=== PATIENT | male | born 1980 | race Caucasian/White ===

== ENCOUNTER 2018-11-20 00:37 | Emergency (ER) | payer SELFPAY ==
[~2018-11-20] VITALS: Ht 175.3 cm; Wt 79.4 kg
--- NOTE | 2018-11-20 00:45 | NUR ---
PATIENT NOT IN WAITING ROOM.
[2018-11-20 01:15] VITALS: BP 134/83
[2018-11-20] MEDS ORDERED: PERMETHRIN 5% CRM 60 GM TUBE TP ONE ×2 (02:30→02:40)
[2018-11-20] MEDS ORDERED: diphenhydrAMINE HCL 25 MG CAPSULE PO ONE (02:30)
[2018-11-20] MEDS ORDERED: diphenhydrAMINE HCL 50 MG CAPSULE ONE (02:31)
[2018-11-20] MEDS ORDERED: LORAZEPAM 1 MG TABLET PO ONE (03:00)
[2018-11-20] MEDS ORDERED: LORAZEPAM 0.5 MG TABLET ONE (03:04)
--- NOTE | 2018-11-20 03:14 | NUR ---
Patient discharged to home in stable condition. Written and verbal after care instructions given. Patient verbalizes understanding of instruction.
--- NOTE | 2018-11-20 03:14 | NUR ---
PT REFUSED ATIVAN. PT WALKED OUT WITHOUT RESOURCES OR DISCHARGE PAPERWORK. ER MADE AWARE
== END 2018-11-20 03:16 | disposition home or self-care (01) ==
LOC: ER 00:39
DX: B86 Scabies (principal); Z59.0 Homelessness
CPT/HCPCS: 99283; A4606; Q0163

== ENCOUNTER 2019-02-01 15:28 | Inpatient (IN) | payer SELFPAY ==
[~2019-02-01] VITALS: Ht 170.2 cm; Wt 81.6 kg
[2019-02-01] MEDS ORDERED: VANCOMYCIN 1 GM in IV D5W 250 ML IV ONE (16:00)
[2019-02-01] MEDS ORDERED: HYDROMORPHONE 1 MG/1 ML DISP.SYRIN IV ONE (16:00)
[2019-02-01] MEDS ORDERED: IV NS 0.9% 1,000 ML BAG IV ONE (16:00)
--- NOTE | 2019-02-01 16:01 | NUR ---
DR JAQUEZ AT BEDSIDE FOR EVAL.
--- NOTE | 2019-02-01 16:15 | NUR ---
IV LINE STARTED BLOOD DRAWN AND SENT TO LAB.
[2019-02-01] MEDS ORDERED: HYDROMORPHONE 1 MG/1 ML DISP.SYRIN ONE (16:23)
[2019-02-01 16:28] LABS: BASOPHILS # (AUTO) 0.1 /CMM (0.0-0.2); BASOPHILS % (AUTO) 0.5 % (0.0-2.0); EOSINOPHILS % (AUTO) 0.7 % (0.0-6.0); HEMATOCRIT 35 % (39-51); HEMOGLOBIN 11.8 g/dL (13.5-17.5); LYMPHOCYTES # (AUTO) 2.2 /CMM (0.8-4.8); LYMPHOCYTES % (AUTO) 18.8 % (20.0-44.0); MEAN CORPUSCULAR HGB CONC 33 g/dl (31.0-36.0); MEAN CORPUSCULAR VOLUME 78 fL (80-96); MONOCYTES # (AUTO) 0.9 /CMM (0.1-1.30); MONOCYTES % (AUTO) 7.9 % (2.0-12.0); NEUTROPHILS # (AUTO) 8.5 /CMM (1.8-8.9); NEUTROPHILS % (AUTO) 72.1 % (43.0-81.0); PLATELET COUNT (AUTO) 477 /CMM (150-450); RED BLOOD CELL COUNT(AUTO) 4.57 MIL/uL (4.5-6.0); WHITE BLOOD COUNT (AUTO) 11.9 K/uL (4.3-11.0)
--- NOTE | 2019-02-01 16:40 | NUR ---
U/S TECH AT BEDSIDE FOR RLE DUPLEX ULTRASOUND.
--- NOTE | 2019-02-01 16:42 | NUR ---
CALLED NURSING SUP. FOR TELE BED
[2019-02-01 16:45] LABS: CALCIUM, SERUM 9.4 mg/dL (8.5-10.1); CARBON DIOXIDE 24 mmol/L (21-32); CHLORIDE 100 mmol/L (98-107); CREATININE 1.2 mg/dL (0.6-1.3); GLUCOSE 118 mg/dL (74-106); POTASSIUM 4.1 mmol/L (3.5-5.1); SODIUM SERUM 136 mmol/L (136-145); UREA NITROGEN, BLOOD 26 mg/dL (7-18)
[2019-02-01 16:49] LABS: ALANINE AMINOTRANSFERASE 42 U/L (12-78); ALBUMIN 3.3 g/dL (3.4-5.0); ALKALINE PHOSPHATASE 81 U/L (46-116); ASPARTATE AMINOTRANSFERASE 43 U/L (15-37); BILIRUBIN,DIRECT 0.2 mg/dL (0.0-0.2); BILIRUBIN,TOTAL 0.7 mg/dL (0.2-1.0)
--- NOTE | 2019-02-01 16:56 | NUR ---
RADIOLOGY AT BEDSIDE FOR CHEST AND R TIB/FIB XRAY.
[2019-02-01 17:04] VITALS: BP 104/69
--- NOTE | 2019-02-01 17:05 | NUR ---
TELE 117-2
--- NOTE | 2019-02-01 17:14 | NUR ---
PT STILL UNABLE TO PROVIDE URINE SAMPLE AT THIS TIME. PROVIDED W/ URINAL AT BEDSIDE.
--- NOTE | 2019-02-01 17:25 | NUR ---
REPORT GIVEN TO COOPER BUSTILLO. PT AWAITING TRANSFER TLO FLOOR.
--- NOTE | 2019-02-01 18:04 | NUR ---
SALESFORCE CONSULTANT NOTES Received patient on room air, no sob noted. Patient denies patient at this time. Vital signs stable. A/O x4. Patient's bed at the lowest setting, call light within reach, instructed patient how to use call light. Will give report to NOC RN for MALGORZATA and admission.
--- NOTE | 2019-02-01 18:24 | NUR ---
CRANKSHAFT STRAIGHTENER NOTES Patient left AMA, patient signed the AMA form, without seeing the Dr. Vladimir Teague. Dr. Teague aware of the situation and no admission paperwork will be done. Charge Nurse aware.
== END 2019-02-01 18:24 | disposition left against medical advice (07) | DRG 872 ==
LOC: ER 15:30 → TELE1 17:11
PROVIDERS: ADMIT Nurse Practitioner Acute Care; ATTEND Nurse Practitioner Acute Care
DX: A41.9 Sepsis, unspecified organism (principal); L03.115 Cellulitis of right lower limb; F19.10 Other psychoactive substance abuse, uncomplicated; Z59.0 Homelessness; Z88.0 Allergy status to penicillin
CPT/HCPCS: 36415; 71045-TC; 73590-TC; 80048-TC; 80076-TC; 83605-TC; 84484-TC; 85025-TC; 85730-TC; 87040-TC; 87081-TC; 93971-TC; G0378; J1170; J3370; J7030; J7060

== ENCOUNTER 2019-02-04 16:28 | Inpatient (IN) | payer MEDICAID ==
[~2019-02-04] VITALS: Ht 170.2 cm; Wt 67.8 kg
[~2019-02-04 16:28] MED LIST: VANCOMYCIN 1.25 GM in IV NS 0.9% 500 ML IV ONE
[2019-02-04] MEDS ORDERED: VANCOMYCIN 1 GM in IV D5W 250 ML IV ONE (17:00)
[2019-02-04] MEDS ORDERED: LEVOFLOXACIN 750 MG /D5W 150ML 150 ML IV ONE (17:00)
[2019-02-04 17:20] LABS: BASOPHILS # (AUTO) 0.1 /CMM (0.0-0.2); BASOPHILS % (AUTO) 0.9 % (0.0-2.0); EOSINOPHILS % (AUTO) 2.5 % (0.0-6.0); HEMATOCRIT 33 % (39-51); HEMOGLOBIN 10.8 g/dL (13.5-17.5); LYMPHOCYTES # (AUTO) 2.5 /CMM (0.8-4.8); MEAN CORPUSCULAR HGB CONC 33 g/dl (31.0-36.0); MEAN CORPUSCULAR VOLUME 78 fL (80-96); MONOCYTES # (AUTO) 0.5 /CMM (0.1-1.30); NEUTROPHILS # (AUTO) 3.2 /CMM (1.8-8.9); NEUTROPHILS % (AUTO) 49.6 % (43.0-81.0); PLATELET COUNT (AUTO) 436 /CMM (150-450); RED BLOOD CELL COUNT(AUTO) 4.16 MIL/uL (4.5-6.0); WHITE BLOOD COUNT (AUTO) 6.5 K/uL (4.3-11.0)
--- NOTE | 2019-02-04 17:29 | NUR ---
PT REC'D TO RC/O RT LEG PAIN 10/10 SCABS ON NOSE AND RT FOREHEAD IV STARTED 20G RT HAND MEDS LEVO PATRICIO INFUSING
[2019-02-04 17:38] LABS: ALANINE AMINOTRANSFERASE 45 U/L (12-78); ALBUMIN 2.9 g/dL (3.4-5.0); ALKALINE PHOSPHATASE 72 U/L (46-116); ASPARTATE AMINOTRANSFERASE 36 U/L (15-37); BILIRUBIN,DIRECT 0.2 mg/dL (0.0-0.2); BILIRUBIN,TOTAL 0.5 mg/dL (0.2-1.0); CALCIUM, SERUM 8.9 mg/dL (8.5-10.1); CARBON DIOXIDE 28 mmol/L (21-32); CHLORIDE 103 mmol/L (98-107); CREATININE 0.8 mg/dL (0.6-1.3); GLUCOSE 126 mg/dL (74-106); POTASSIUM 3.4 mmol/L (3.5-5.1); SODIUM SERUM 140 mmol/L (136-145); TOTAL PROTEIN, SERUM 7.1 g/dL (6.4-8.2); UREA NITROGEN, BLOOD 14 mg/dL (7-18)
--- NOTE | 2019-02-04 17:56 | NUR ---
pt eating lunch tolertaing well
[2019-02-04] MEDS ORDERED: HYDROCODONE/APAP 5/325MG 1 EACH TABLET PO PRN (18:30)
[2019-02-04] MEDS ORDERED: MAGNESIUM HYDROXIDE 30 ML UDC PO PRN (18:30)
[2019-02-04] MEDS ORDERED: TEMAZEPAM 15 MG CAPSULE PO PRN (18:30)
[2019-02-04] MEDS ORDERED: ONDANSETRON HCL/PF 4 MG/2 ML VIAL IVP PRN (18:30)
[2019-02-04] MEDS ORDERED: MAG HYDROX/AL HYDROX/SIMETH 30 ML UDC PO PRN (18:30)
[2019-02-04] MEDS ORDERED: HYDROCODONE/APAP 10/325MG 1 EA TABLET PO PRN (18:30)
[2019-02-04] MEDS ORDERED: ACETAMINOPHEN 325 MG TABLET PO PRN (18:30)
[2019-02-04] MEDS ORDERED: POTASSIUM CHLORIDE 20 MEQ TAB.PRT.SR PO ONE (19:00)
--- NOTE | 2019-02-04 19:00 | NUR ---
vanco 1 g ivpb infusing rt hand pt sleeping cont to monitor
--- NOTE | 2019-02-04 19:30 | NUR ---
ASSUMED CARE FOR PT. PT RESTING COMFORTABLY IN BED. VITAL SIGNS STABLE. NO ACUTE DISTRESS NOTED AT THIS TIME. WILL CONTINUE TO MONITOR
[2019-02-04 20:00] VITALS: BP 113/63
--- NOTE | 2019-02-04 20:05 | NUR ---
GAVE REPORT TO LATASHA BUSTILLO FOR MALGORZATA
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
--- NOTE | 2019-02-04 20:25 | NUR ---
RN NOTES PATIENT BELONGINGS LIST DONE BY PK Murphy PATIENT HAD A MAROON BAG FILLED WITH EMPTY SYRINGES AND A FEW BLUE VIALS, AND ANOTHER DEVICE I HAVE NO KNOWLEDGE OF WHAT IT IS. PATIENT'S MAROON BAG IS SECURED IN [employer].
--- NOTE | 2019-02-04 20:25 | NUR ---
PT TRANSFERR[facility]
[2019-02-04 20:29] VITALS: BP 113/63
[2019-02-04] MEDS: IV NS 0.9% 1,000 ML IV PRN (20:42)
--- NOTE | 2019-02-04 22:35 | NUR ---
RN NOTES PATIENT REQUESTS TO SMOKE. PATIENT SIGNED CONSENT/WAIVER FORM. PATIENT STATES HE DOES NOT HAVE CIGARETTES ON HAND. HE SMOKES BY PICKING IT OFF THE GROUND AND ROLLING IT. PK Murphy ESCORTED PATIENT OUTSIDE TO SMOKE.
--- NOTE | 2019-02-04 23:00 | NUR ---
RN NOTES DR. RENTERIA AWARE OF LACTIC ACID RESULT 3.1. WANTS TO INCREASE NS AT 100 ML/HR.
--- NOTE | 2019-02-05 06:10 | NUR ---
RN CLOSING NOTES PATIENT IS ASLEEP, RESTING COMFORTABLY IN BED. TEMPERATURE WNL. WHEN AWAKE, PATIENT IS A/O X 4. NO SIGNS OF RESPIRATORY DISTRESS. NO SIGNS OF SOB. PATIENT DID NOT ASK FOR MORE PAIN MEDICATION SINCE 2045. APPLIED MEPILEX ON ABRASIONS AND SKIN TEARS. NO SIGNS OF DISCOMFORT. SAFETY PRECAUTIONS IMPLEMENTED. CALL LIGHT WITHIN REACH. WILL ENDORSE TO AM SHIFT FOR CONTINUITY OF CARE.
--- NOTE | 2019-02-05 07:10 | NUR ---
MS RN NOTES PATIENT IN BED ALERT ORIENTED X 4. NO ACUTE DISTRESS NOTED. BREATHING UNLABORED. NO SOB NOTED. DENIED ANY PAIN AT THIS TIME. IV ACCESS PATENT AND INTACT, NO REDNESS OR SWELLING NOTED. SAFETY MEASURES IN PLACE. WILL CONTINUE TO MONITOR ACCORDINGLY.
[2019-02-05] MEDS ORDERED: FEE PK DOSING 1 MIN EA MC ONE (07:29)
[2019-02-05 08:00] VITALS: BP 107/61
[2019-02-05] MEDS: VANCOMYCIN 1 GM in IV D5W 250 ML IV SCH ×2 (08:57→16:50)
--- NOTE | 2019-02-05 12:00 | NUR ---
MS RN NOTES PATIENT SLEEPING COMFORTABLY IN BED, NO ACUTE DISTRESS NOTED. NO FACIAL GRIMACING NOTED. WILL CONTINUE TO MONITOR PATIENT.
[2019-02-05] MEDS: IV NS 0.9% 1,000 ML IV PRN (15:37)
--- NOTE | 2019-02-05 16:00 | NUR ---
MS RN NOTES PATIENT REFUSED BLOOD DRAW DESPITE OF EXPLANATION OF RISK AND BENEFITS, MD NOTIFIED.
--- NOTE | 2019-02-05 17:00 | NUR ---
MS RN NOTES PATIENT ASKED FOR HIS IV ACCESS TO BE REMOVED AND SAID " I'M WALKING OUT OF HERE". RISKS AND BENEFITS EXPLAINED TO THE PATIENT ON LEAVING AGAINST MEDICAL ADVICE, PATIENT INSISTING ON LEAVING THE HOSPITAL. IV ACCESS REMOVED, NO BLEEDING, NO REDNESS, NO SWELLING NOTED. ALL BELONGINGS ACCOUNTED FOR. PATIENT SIGNED AMA FORM AND BELONGINGS LIST. REFUSED BODY ASSESSMENT AND PHOTO TAKEN. ASSISTED TO THE LOBBY, PATIENT ALERT ORIENTED X 4. NO ACUTE DISTRESS NOTED. PATIENT AMBULATORY WITH STEADY GAIT.
== END 2019-02-05 17:00 | disposition left against medical advice (07) | DRG 383 ==
LOC: ER 16:31 → MED 19:58
PROVIDERS: ADMIT Nurse Practitioner Acute Care; ATTEND Nurse Practitioner Acute Care
DX: L03.115 Cellulitis of right lower limb (principal); E44.0 Moderate protein-calorie malnutrition; E87.2 Acidosis; Z88.0 Allergy status to penicillin; F19.10 Other psychoactive substance abuse, uncomplicated; E87.6 Hypokalemia; Z59.0 Homelessness; E66.9 Obesity, unspecified; Z68.23 Body mass index [BMI] 23.0-23.9, adult; D64.9 Anemia, unspecified; F17.200 Nicotine dependence, unspecified, uncomplicated; L03.116 Cellulitis of left lower limb; F32.9 Major depressive disorder, single episode, unspecified; F29 Unspecified psychosis not due to a substance or known physiological condition
CPT/HCPCS: 36415; 71045-TC; 80048-TC; 80076-TC; 83605-TC; 85025-TC; 85730-TC; 87040-TC; 87081-TC; 93307-TC; G0378; J1956; J3370; J7030; J7040; J7060

== ENCOUNTER 2019-05-27 22:58 | Emergency (ER) | payer MEDICAID ==
[~2019-05-27] VITALS: Ht 175.3 cm; Wt 79.4 kg
[2019-05-27 23:47] VITALS: BP 117/73
[2019-05-28] MEDS ORDERED: KETOROLAC TROMETHAMINE INJ 60 MG/2 ML VIAL IM ONE
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
[2019-05-28] MEDS ORDERED: KETOROLAC TROMETHAMINE INJ 30 MG/ML VIAL ONE (00:03)
--- NOTE | 2019-05-28 00:12 | NUR ---
XRAY AT BEDSIDE
--- NOTE | 2019-05-28 01:26 | NUR ---
Patient given written and verbal discharge instructions. Patient verbalizes understanding of instructions. Patient is ambulatory with steady gait. Refuses offer of residential placement. Patient given list of available shelters in surrounding area.
== END 2019-05-28 01:29 | disposition home or self-care (01) ==
LOC: ER 23:00
DX: S50.12XA Contusion of left forearm, initial encounter (principal); F17.200 Nicotine dependence, unspecified, uncomplicated; Z59.0 Homelessness; Z88.0 Allergy status to penicillin; V19.88XA Pedal cyclist (driver) (passenger) injured in other specified transport accidents, initial encounter; Y93.I9 Activity, other involving external motion; Y92.89 Other specified places as the place of occurrence of the external cause; Y99.8 Other external cause status
CPT/HCPCS: 73060; 73070; 73090; 96372; 99283; J1885